=== PATIENT | male | born 1950 | race Caucasian/White ===

== ENCOUNTER 2017-04-10 07:16 | Emergency (ER) | payer BC, OTHER ==
[~2017-04-10] VITALS: Ht 185.4 cm; Wt 81.6 kg
[~2017-04-10 07:16] MED LIST: ATEN50TA PO; BUTA1CAP29 PO; CEFA1VIA2 IV; CYCL2DRO3 OS; DEXA5DRO OS; HYDR12.58 PO; LISI10TA2 PO; SIMV40TA3 PO
[2017-04-10 07:26] VITALS: BP 146/79
[2017-04-10] MEDS ORDERED: DEXAMETHASONE SOD PHOS 20 MG/5 ML VIAL. IM ONE (07:45)
[2017-04-10] MEDS ORDERED: SULF1TAB24 PO (07:46)
--- NOTE | 2017-04-10 07:46 | PHYS DOC ---
Past Medical History Past Medical History: High Cholesterol, Hypertension, Migraines, Other Additional Past Medical Histor: STAPH INFECTION Past Surgical History: No Surgical History Alcohol Use: None Drug Use: None Adult General Chief Complaint Chief Complaint: INSECT BITE HPI HPI Patient is a 66 year old male with history of hypertension high cholesterol and migraine headaches who presents today complaining wasp sting to the left hand that occurred 2 days ago, denies any anaphylaxis reaction. Patient states the same thing happened 2 years ago. He states he had to get a Decadron shot take Benadryl and Bactrim because he is allergic to prednisone. Review of Systems Review of Systems Constitutional: Denies fever or chills [] Eyes: Denies change in visual acuity, redness, or eye pain [] HENT: Denies nasal congestion or sore throat [] Respiratory: Denies cough or shortness of breath [] Cardiovascular: No additional information not addressed in HPI [] GI: Denies abdominal pain, nausea, vomiting, bloody stools or diarrhea [] : Denies dysuria or hematuria [] Musculoskeletal: Denies back pain or joint pain [] Integument:wasp bite to the left Neurologic: Denies headache, focal weakness or sensory changes [] Endocrine: Denies polyuria or polydipsia [] Current Medications Current Medications Current Medications Medications (Trade) Dose Ordered Sig/Michele Start Time Stop Time Status Last Admin Dose Admin Dexamethasone Sodium Phosphate (Decadron) 10 mg 1X ONCE 04/10/17 07:45 04/10/17 07:46 UNV Allergies Allergies Allergies Coded Allergies Type Severity Reaction Last Updated Verified prednisone Allergy Mild "FEELS WACKY" 04/10/17 Yes Physical Exam Physical Exam Constitutional: Well developed, well nourished, no acute distress, non-toxic appearance. [] HENT: Normocephalic, atraumatic, bilateral external ears normal, oropharynx moist, no oral exudates, nose normal. [] Eyes: PERRLA, EOMI, conjunctiva normal, no discharge. [] Neck: Normal range of motion, no tenderness, supple, no stridor. [] Cardiovascular:Heart rate regular rhythm, no murmur [] Lungs & Thorax: Bilateral breath sounds clear to auscultation [] Abdomen: Bowel sounds normal, soft, no tenderness, no masses, no pulsatile masses. [] Skin: left hand at with mild soft tissue swelling on the dorsal hand and trace erythema. There is a bite sonia on the base of the left pinky finger dorsal aspect. Neurovascular exam is intact. Back: No tenderness, no CVA tenderness. [] Extremities: No tenderness, no cyanosis, no clubbing, ROM intact, no edema. [] Neurologic: Alert and oriented X 3, normal motor function, normal sensory function, no focal deficits noted. [] Psychologic: Affect normal, judgement normal, mood normal. [] Current Patient Data Vital Signs Vital Signs Date Time Temp Pulse Resp B/P (MAP) Pulse Ox O2 Delivery O2 Flow Rate FiO2 04/10/17 07:26 98.1 72 18 99 Room Air 98.1 EKG EKG [] Radiology/Procedures Radiology/Procedures [] Course & Med Decision Making Course & Med Decision Making Pertinent Labs and Imaging studies reviewed. (See chart for details) Patient is in the ED with a wasp sting to the left hand two days ago. No anaphylaxis reaction. Given Decadron in the ED because he is allergic to prednisone. Updated tetanus. D/c with Bactrim and Benadryl. Dragon Disclaimer Dragon Disclaimer This electronic medical record was generated, in whole or in part, using a voice recognition dictation system. Departure Departure Impression: Primary Impression: Wasp sting Disposition: 01 HOME, SELF-CARE Condition: STABLE Patient Instructions: Bee, Wasp, or Hornet Sting Additional Instructions: You were seen for a wasp sting to the left hand. Take Benadryl. Complete your antibiotics. Come back to the ED if symptoms worsen or you have new concerning symptoms. Follow-up with your doctor in the next 7-14 days Scripts Sulfamethoxazole/Trimethoprim (BACTRIM DS TABLET) 1 Each Tablet 1 TAB PO BID, #20 TAB Prov: DAMIAN ELKINS APRN 04/10/17 Problem Qualifiers Primary Impression: Wasp sting Encounter type: initial encounter Injury intent: accidental or unintentional Qualified Codes: T63.461A - Toxic effect of venom of wasps, accidental (unintentional), initial encounter DAMIAN ELKINS APRN Apr 10, 2017 07:46
== END 2017-04-10 07:52 | disposition home or self-care (01) ==
LOC: ER 07:16
DX: T63.461A Toxic effect of venom of wasps, accidental (unintentional), initial encounter (principal); Y92.89 Other specified places as the place of occurrence of the external cause; I10 Essential (primary) hypertension; E78.00 Pure hypercholesterolemia, unspecified; G43.909 Migraine, unspecified, not intractable, without status migrainosus; Z88.6 Allergy status to analgesic agent
CPT/HCPCS: 96372; 99283; J1100

== ENCOUNTER → 2018-04-23 | Outpatient (CLI) | payer BC | END | disposition home or self-care (01) | LOC: PETSC 09:45 | DX: C85.91 Non-Hodgkin lymphoma, unspecified, lymph nodes of head, face, and neck (principal); K57.30 Diverticulosis of large intestine without perforation or abscess without bleeding; E78.5 Hyperlipidemia, unspecified; E78.00 Pure hypercholesterolemia, unspecified; E83.52 Hypercalcemia; G43.909 Migraine, unspecified, not intractable, without status migrainosus; Z88.8 Allergy status to other drugs, medicaments and biological substances; Z88.6 Allergy status to analgesic agent | CPT/HCPCS: 78815; A9552 ==

== ENCOUNTER → 2019-04-29 | Outpatient (CLI) | payer BC ==
[2018-03-24 11:00] VITALS: BP 138/76
[~2019-04-29] MED LIST changes: +CONTRAST GIVEN. MC PRN; +IOHEXOL 240 MG/ML 50ML VIAL. PO ONE; +IOHEXOL 300 MG/ML 100ML VIAL. IV ONE; +LISI-338 PO; +SULF1TAB24 PO; +TRAM-48 PO
--- NOTE | 2019-04-29 09:59 | RAD ---
Examination: CT chest abdomen pelvis with IV contrast HISTORY: History of MALToma COMPARISON: CT abdomen pelvis from 03/14/2018 TECHNIQUE: Axial CT images of the chest abdomen pelvis were performed with IV contrast. Oral contrast was used. Coronal and sagittal reformats are performed Exposure: One or more of the following individualized dose reduction techniques were utilized for this examination: 1. Automated exposure control 2. Adjustment of the mA and/or kV according to patient size 3. Use of iterative reconstruction technique FINDINGS: The visualized thyroid gland grossly appears unremarkable . The central airways are patent. The ascending aorta measures 3.6 cm in transverse dimension. The heart size grossly appears unremarkable. Coronary artery calcifications. Mild aortic atherosclerosis. No radiologically significant mediastinal lymphadenopathy is identified. Faint subtle groundglass infiltrates identified in the right upper lobe, right middle lobe of the lung. No evidence of pleural effusion or pneumothorax. Mild pleural calcifications identified. There is a 9.5 mm hypodensity identified in the left lobe of the liver is similar to prior exam, difficult to characterize probably a cyst. The visualized spleen, adrenals grossly appears unremarkable. The stomach is mildly distended. There is mild thickening of the wall of the proximal stomach could be due to nondistention or underlying mucosal pathology is not completely excluded. The visualized pancreas grossly appears unremarkable. Small bowel is nondilated. There is minimal questionable wall thickening or scarring identified in the right lower quadrant small bowel loops best visualized on series 5 image #71. Moderate amount of feces and gas noted in the colon. Multiple sigmoid colon diverticulosis. Urinary bladder is mildly distended. The bilateral kidneys enhance symmetrically. Mild degenerative changes lumbar spine. IMPRESSION: 1. Mild thickening of the wall of the proximal stomach could be due to nondistention or underlying mucosal pathology is not completely excluded. There is minimal questionable wall thickening or scarring identified in the right lower quadrant small bowel loops best visualized on series 5 image #71. PET/CT scan is recommended to exclude malignancy. 2. Multiple sigmoid colon diverticulosis. Electronically signed by: Elvis Jones MD (04/29/2019 9:56 AM) [id number]
== END | disposition home or self-care (01) ==
LOC: CT 08:01
PROVIDERS: ATTEND Internal Medicine Hematology & Oncology
DX: C88.4 Extranodal marginal zone B-cell lymphoma of mucosa-associated lymphoid tissue [MALT-lymphoma] (principal); I25.10 Atherosclerotic heart disease of native coronary artery without angina pectoris; I70.0 Atherosclerosis of aorta; J94.8 Other specified pleural conditions; K31.89 Other diseases of stomach and duodenum; K57.30 Diverticulosis of large intestine without perforation or abscess without bleeding
CPT/HCPCS: 71260; 74177; Q9966; Q9967

== ENCOUNTER → 2019-05-06 | Outpatient (CLI) | payer BC ==
[2018-03-24 11:00] VITALS: BP 138/76
[~2019-05-06] MED LIST changes: -CONTRAST GIVEN. MC PRN; -IOHEXOL 240 MG/ML 50ML VIAL. PO ONE; -IOHEXOL 300 MG/ML 100ML VIAL. IV ONE
--- NOTE | 2019-05-06 13:54 | RAD ---
PET ONCOLOGY CLINICAL INDICATION: Lymphoma. PET for subsequent treatment strategy. FDG PET-CT of the Body TECHNIQUE: The patient received an IV injection of 14.6 mCi 18F-FDG in the right anterior cubital fossa. After an initial uptake phase of approximately 60-90 minutes, a CT scan without oral contrast, without IV contrast was acquired. Subsequently, positron emission tomography images from the skull base to mid thigh were obtained. CT, PET and fused images were reconstructed in transaxial, coronal, and sagittal projections and interpreted from a workstation. The patient's plasma glucose was 111 mg/dl. PRIOR STUDIES: 04/23/2018. CORRELATIVE STUDIES: Most recent CT abdomen pelvis and chest from 04/29/2019. FINDINGS: PET: No abnormal metallic activity seen in the chest, abdomen or pelvis. IMPRESSION: PET-CT from the skull base to mid thigh demonstrates: 1. No abnormal metabolic activity seen. 2. Please see report on CT chest abdomen pelvis for CT findings done on 04/29/2019. Electronically signed by: Desmond Joyner DO (05/06/2019 1:52 PM) [facility]
== END | disposition home or self-care (01) ==
LOC: PETSC 11:56
PROVIDERS: ATTEND Internal Medicine Hematology & Oncology
DX: C88.4 Extranodal marginal zone B-cell lymphoma of mucosa-associated lymphoid tissue [MALT-lymphoma] (principal); Z88.1 Allergy status to other antibiotic agents; Z88.8 Allergy status to other drugs, medicaments and biological substances
CPT/HCPCS: 78815; A9552

== ENCOUNTER → 2020-05-04 | Outpatient (CLI) | payer BC ==
[2018-03-24 11:00] VITALS: BP 138/76
[~2020-05-04] MED LIST changes: +CONTRAST GIVEN. MC PRN; -DEXA5DRO OS; +DEXA5DRO11 OS; +IOHEXOL 240 MG/ML 50ML VIAL. PO ONE; +IOHEXOL 300 MG/ML 100ML VIAL. IV ONE; +SIMV40TA18 PO; -SIMV40TA3 PO
--- NOTE | 2020-05-04 12:39 | RAD ---
EXAM: CT OF THE CHEST, ABDOMEN AND PELVIS WITH CONTRAST. HISTORY: Maltoma, lymphoma. TECHNIQUE: Computed tomography of the chest, abdomen and pelvis was performed after the intravenous administration of iodinated contrast. One or more of the following individualized dose reduction techniques were utilized for this examination: 1. Automated exposure control. 2. Adjustment of the mA and/or kV according to patient size. 3. Use of iterative reconstruction technique. COMPARISON: 04/29/2019. FINDINGS: Bone windows reveal no suspicious lesions. There are no pathologically enlarged mediastinal or axillary lymph nodes. There is no pleural or pericardial effusion. The heart is not enlarged. Lung windows reveal no infiltrates. There is confluent soft tissue throughout the inferior aspect of the omentum measuring up to 2.7 cm in thickness and spanning 14 cm. Mild stranding throughout the omentum more superiorly is consistent with additional nonmasslike involvement. Lesser soft tissue infiltration is noted within the mesentery in the pelvis. There are no pathologically enlarged inguinal, retroperitoneal or mesenteric lymph nodes. Sigmoid diverticulosis is moderate to severe. There is no small bowel obstruction. No focal bowel wall or gastric wall thickening is appreciated. A 9 mm hypoattenuating lesion within hepatic segment 3 demonstrates peripheral nodular enhancement and is consistent with a benign hemangioma. Small gallstones are noted. Spleen is nonenlarged. The adrenal glands, pancreas and left kidney are unremarkable. There is are subcentimeter cysts in the right kidney. IMPRESSION: 1. Omental caking may represent lymphomatous involvement or metastatic disease. The pelvic disease is amenable to percutaneous biopsy if the diagnosis remains unclear. Electronically signed by: Elvi Schultz MD (05/04/2020 12:36 PM) [id number]
== END | disposition home or self-care (01) ==
LOC: CT 11:24
PROVIDERS: ATTEND Internal Medicine Hematology & Oncology
DX: C88.4 Extranodal marginal zone B-cell lymphoma of mucosa-associated lymphoid tissue [MALT-lymphoma] (principal); K57.30 Diverticulosis of large intestine without perforation or abscess without bleeding
CPT/HCPCS: 71260; 74177; Q9966; Q9967